=== PATIENT | female | born 1980 | race Hispanic/Latino ===

== ENCOUNTER → 2017-07-12 | Outpatient (CLI) | payer BC | END | disposition home or self-care (01) | LOC: RAH 14:27 | PROVIDERS: ATTEND Specialist | DX: N63.10 Unspecified lump in the right breast, unspecified quadrant (principal); N63.20 Unspecified lump in the left breast, unspecified quadrant; N64.4 Mastodynia | CPT/HCPCS: 76641; 77066 ==